=== PATIENT | male | born 1995 | race Caucasian/White ===

== ENCOUNTER 2020-08-02 01:45 | Inpatient (IN) | payer BC, SELFPAY ==
[~2020-08-02] VITALS: Ht 172.7 cm; Wt 88.5 kg
[2020-08-02 01:48] VITALS: BP 150/86
--- NOTE | 2020-08-02 02:01 | NUR ---
24 Y/O MALE C/O ABD PAIN TO RLQ X 1 DAY. PT STATES 7/10 SHARP PAIN, UPON MOVEMENT. ABD SOFT NON TENDER, HYPERACTIVE BOWEL SOUNDS. C/O N/V, CONSTIPATION, LAST BM 5 HRS AGO, SOFT STOOL. MEDHX: DENIES NDKA
--- NOTE | 2020-08-02 02:09 | NUR ---
ERMD AT BEDSIDE EVALUATING PT
[2020-08-02] MEDS ORDERED: KETOROLAC 15 MG/ML VIAL IVP ONE (02:15)
[2020-08-02] MEDS ORDERED: ONDANSETRON 4 MG/2 ML VIAL IVP ONE (02:15)
[2020-08-02 02:29] LABS: BASOPHILS # (AUTO) 0.2 K/uL (0.00-0.22); BASOPHILS % (AUTO) 0.9 % (0.0-2.0); EOSINOPHILS # (AUTO) 0.3 K/uL (0-0.4); EOSINOPHILS % (AUTO) 1.5 % (0.0-4.0); HEMATOCRIT 48.7 % (36-52); HEMOGLOBIN 16.7 g/dL (12.0-18.0); LYMPHOCYTES % (AUTO) 22.4 % (20.5-51.1); MEAN CORPUSCULAR HEMOGLOBIN 30 pg (27-31); MEAN CORPUSCULAR HGB CONC 34 g/dL (33-37); MEAN CORPUSCULAR VOLUME 87.7 fL (80-94); MONOCYTES # (AUTO) 1.2 K/uL (0.8-1.0); MONOCYTES % (AUTO) 6.5 % (1.7-9.3); NEUTROPHILS # (AUTO) 12.2 K/uL (1.8-7.7); NEUTROPHILS % (AUTO) 68.7 % (42.2-75.2); PLATELET COUNT (AUTO) 213 K/uL (140-450); RED BLOOD CELL COUNT(AUTO) 5.56 MIL/uL (4.20-6.10); RED CELL DISTRIBUTION WIDTH 13.2 % (11.6-13.7); WHITE BLOOD COUNT (AUTO) 17.8 K/uL (4.8-10.8)
--- NOTE | 2020-08-02 02:30 | NUR ---
PT TAKEN TO CT VIA W/C
--- NOTE | 2020-08-02 02:36 | NUR ---
PT RETURNED FROM CT VIA W/C
--- NOTE | 2020-08-02 02:38 | NUR ---
ERMD AT BEDSIDE PERFORMING ULTRASOUND
[2020-08-02 02:46] LABS: ALBUMIN 4.2 g/dL (3.4-5.0); ANION GAP 11.4 (8-16); CARBON DIOXIDE 26.3 mmol/L (21-32); CREATININE 1.1 mg/dL (0.6-1.3); POTASSIUM 3.7 mmol/L (3.5-5.1); TOTAL BILIRUBIN 0.4 mg/dL (0.0-1.0)
[2020-08-02] MEDS ORDERED: NACL 0.9% 1,000 ML IV ONE (04:00)
[2020-08-02] MEDS ORDERED: metroNIDAZOLE 500 MG/NS PREMIX 100 ML IV ONE ×2 (04:00→04:16)
--- NOTE | 2020-08-02 04:05 | NUR ---
PT VERBALIZED TO GIVE CONSENT TO GIVE MEDICAL INFORMATION TO MOTHER.
[2020-08-02] MEDS ORDERED: NACL 0.9% 1,000 ML IV SCH (04:07)
[2020-08-02] MEDS ORDERED: MORPHINE SULFATE 2 MG/ML SYR IVP PRN (04:10)
[2020-08-02] MEDS ORDERED: cefTRIAXone 1,000 MG VIAL ONE (04:17)
--- NOTE | 2020-08-02 04:49 | NUR ---
[facility] MEDICATION ADMINISTERED
--- NOTE | 2020-08-02 04:50 | NUR ---
DASHA COVID SWAB DONE AND SENT TO LAB
[2020-08-02 05:45] VITALS: BP 127/78
--- NOTE | 2020-08-02 05:45 | NUR ---
RECEIVED PT FROM SOCIAL MEDIA CAMPAIGN MANAGER AT THIS TIME. PT IS AWAKE AND ALERT ORIENTED X 4 ABLE TO COMMUNICATE WANTS AND NEEDS. CURRENTLY DENIES PAIN, LUNG SOUND CLEAR ABD IS FLAT SOFT AND TENDER WITH PALPITATION. SKIN IS INTACT. V/S: 98.3, 65, 18, 127/78, 98% RA. PAIN 0/10. PT WAS ORIENTED TO ROOM AND CALL LIGHT. SAFETY MEASURES IN PLACE. PT VERBALIZED UNDERSTANDING. MRSA NASAL SWAB COLLECTED AND WILL BE ROUTED TO LAB. PT EDUCATED ON NPO STATUS. WILL CONTINUE TO MONITOR.
--- NOTE | 2020-08-02 05:45 | NUR ---
Patient will be admitted to care of DR LOPEZ. Admited to MED/SURG. Will go to room 119 B. Belongings list completed. Report to [facility] CERVANTES.
[2020-08-02] MEDS ORDERED: AMPICILLIN/SULBACTAM 3 GM VIAL ONE (06:57)
[2020-08-02] MEDS: AMPICILLIN/SULBACTAM 3 GM in NACL 0.9% 100 ML IV SCH ×4 (07:00→23:48)
--- NOTE | 2020-08-02 07:30 | NUR ---
REPORT GIVEN TO AM RN FOR CONTINUITY OF CARE. PT IS STABLE RESTING IN BED.
--- NOTE | 2020-08-02 07:35 | NUR ---
RECEIVED BEDSIDE REPORT FROM NIGHTSHIFT NURSE. PT RESTING IN BED. ABLE TO MAKE NEEDS KNOWN. RESPIRATIONS EVEN AND UNLABORED WITH NO SOB OR RESPIRATORY DISTRESS. SKIN WARM AND DRY TO TOUCH. IV SITE IN RAC 20G IS CLEAN, DRY, AND INTACT. SAFETY MEASURES IN PLACE. WILL CONTINUE TO MONITOR
[2020-08-02 08:00] VITALS: BP 120/82
[2020-08-02] MEDS: ENOXAPARIN 40 MG/0.4 ML SYR SUBQ SCH (08:24)
--- NOTE | 2020-08-02 08:42 | NUR ---
ADMINISTERED SCHED MED PRESCRIBED PER MD ORDER. PT TOLERATED WELL. PT COMPLAINED OF SEVERE PAIN. PRN MORPHINE ADMINISTERED PRESCRIBED PER MD ORDER. MEDICATION EDUCATION PERFORMED. PT VERBALIZED UNDERSTANDING. SAFETY MEASURES IN PLACE. WILL CONTINUE TO MONITOR
--- NOTE | 2020-08-02 10:00 | NUR ---
OBTAINED CONSENT FOR LAPAROSCOPIC APPENDECTOMY ORDERED PER MD. WILL CONTINUE TO MONITOR
--- NOTE | 2020-08-02 10:22 | NUR ---
PRE-OP CHECKLIST COMPLETE. SAFETY MEASURES IN PLACE. WILL CONTINUE TO MONITOR
--- NOTE | 2020-08-02 10:50 | NUR ---
SURGERY HERE TO TAKE PATIENT TO LAP APPY. REPORT GIVEN AT BEDSIDE. SAFETY MEASURES IN PLACE. WILL CONTINUE TO MONITOR
[2020-08-02] MEDS ORDERED: ROCURONIUM 50 MG/5 ML VIAL IV ONE (11:02)
[2020-08-02] MEDS ORDERED: GLYCOPYRROLATE 0.2 MG/ML VIAL ONE (11:02)
[2020-08-02] MEDS ORDERED: DESFLURANE 240 ML BTL INH ONE (11:02)
[2020-08-02] MEDS ORDERED: NEOSTIGMINE 1:1000 10 MG/10 ML VIAL ONE (11:02)
[2020-08-02] MEDS ORDERED: PROPOFOL 200 MG/20 ML VIAL IV ONE (11:02)
[2020-08-02] MEDS ORDERED: SUCCINYLCHOLINE CHLORIDE 200 MG/10 ML VIAL IVP ONE (11:02)
[2020-08-02] MEDS: NACL 0.9% 1,000 ML IV SCH ×3 (11:08→21:34)
[2020-08-02] MEDS ORDERED: HYDROmorphone 1 MG/ML AMP IVP PRN (11:10)
[2020-08-02] MEDS ORDERED: MEPERIDINE 25 MG/ML SYR IVP PRN (11:10)
[2020-08-02] MEDS ORDERED: ONDANSETRON 4 MG/2 ML VIAL IVP PRN ×2 (11:10→12:30)
[2020-08-02] MEDS: BUPIVACAINE-MPF 0.25% 30 ML VIAL INJ ONE ×2 (11:26→12:36)
[2020-08-02] MEDS: LIDOCAINE 2% 1000 MG/50 ML VIAL INJ ONE ×2 (11:27→12:37)
[2020-08-02] MEDS: HYDROmorphone PFS 2 MG/ML SYR ONE ×4 (12:20→12:50)
--- NOTE | 2020-08-02 13:15 | NUR ---
PATIENT RETURNED FROM SURGERY. REPORT GIVEN AT BEDSIDE. POST OP VITALS HAVE BEEN STARTED. SAFETY MEASURES IN PLACE. WILL CONTINUE TO MONITOR
--- NOTE | 2020-08-02 13:28 | NUR ---
ADMINISTERED SCHED MED PRESCRIBED PER MD ORDER. PT TOLERATED WELL. MEDICATION EDUCATION PERFORMED. PT VERBALIZED UNDERSTANDING. SAFETY MEASURES IN PLACE. WILL CONTINUE TO MONITOR
--- NOTE | 2020-08-02 14:32 | NUR ---
HOURLY ROUNDING. PT RESTING IN BED. ABLE TO MAKE NEEDS KNOWN. RESPIRATIONS EVEN AND UNLABORED WITH NO SOB OR RESPIRATORY DISTRESS. SKIN WARM AND DRY TO TOUCH. SAFETY MEASURES IN PLACE. WILL CONTINUE TO MONITOR
[2020-08-02] MEDS: MORPHINE SULFATE 4 MG/ML SYR IVP PRN ×2 (15:19→21:20)
--- NOTE | 2020-08-02 15:19 | NUR ---
PT CALLED AND COMPLAINED OF SEVERE PAIN AND NAUSEA. PRN PAIN MEDICATION ADMINISTERED PRESCRIBED PER MD ORDER. PT TOLERATED WELL. MEDICATION EDUCATION PERFORMED. PT VERBALIZED UNDERSTANDING. SAFETY MEASURES IN PLACE. WILL CONTINUE TO MONITOR
[2020-08-02] MEDS: ONDANSETRON 4 MG/2 ML VIAL IVP PRN (15:29)
[2020-08-02 16:00] VITALS: BP 114/72
[2020-08-02] MEDS: ACETAMINOPHEN/CODEINE 300/30MG 1 TAB PO PRN (17:09)
--- NOTE | 2020-08-02 17:09 | NUR ---
PT CALLED AND COMPLAINED OF PAIN. PRN PAIN MEDICATION ADMINISTERED PRESCRIBED PER MD ORDER. PT TOLERATED WELL. MEDICATION EDUCATION PERFORMED. PT VERBALIZED UNDERSTANDING. SAFETY MEASURES IN PLACE. WILL CONTINUE TO MONITOR
--- NOTE | 2020-08-02 18:03 | NUR ---
ADMINISTERED SCHED MED PRESCRIBED PER MD ORDER. PT TOLERATED WELL. MEDICATION EDUCATION PERFORMED. PT VERBALIZED UNDERSTANDING. SAFETY MEASURES IN PLACE. WILL CONTINUE TO MONITOR
--- NOTE | 2020-08-02 20:00 | NUR ---
RECEIVED BEDSIDE REPORT FROM THE DAY RN FOR CONTINUITY OF CARE. RECEIVED PT LAYING IN BED, A/A/OX4. PT S/P LAP APPY WITH 3 LAP SITES COVERED WITH 2X2 ALL C/D/I. PT C/O PAIN ON HIS ABDOMEN. PT MADE AWARE THAT HIS PAIN MEDICATIONS ARE NOT DUE YET. DENIES NAUSEA AND VOMITING. PT VERBALIZED THAT HE DIDN'T PASS GAS AND NO BURPING WELL. INSTRUCTED THE PT TO GET OUT OF BED WHEN HIS PAIN IS CONTROLLED AND WALK AROUND THE ROOM OR IN THE HALLWAY. GAVE PT THE BENEFITS OF MOVING AROUND AND GETTING OUT OF BED. ALSO PROVIDED THE PT INCENTIVE SPIROMETER AND DEMONSTRATE HOW TO USE IT WITH RETURN DEMONSTRATION FROM THE PT. INSTRUCTED THE PT TO USE IT 10X Q HOUR WHEN HE IS AWAKE TO PREVENT POST OP PNEUMONIA. PT VERBALIZED UNDERSTANDING WITH THE TEACHING. IVF INFUSING ORDERED. CALL LIGHT WITHIN REACH. WILL CONTINUE POC AND MONITORING.
--- NOTE | 2020-08-02 22:00 | NUR ---
MEDICATED THE PT EARLIER WITH MORPHINE AND PT IS CURRENTLY ASLEEP AND NO COMPLAIN. NO SIGN AND SYMPTOMS OF DISTRESS NOTED.
[2020-08-03] VITALS: BP 148/84
--- NOTE | 2020-08-03 | NUR ---
PT VITAL SIGNS STABLE, AFEBRILE, SATING 100% ON RA. NO COMPLAIN OF PAIN AT THIS TIME.
[2020-08-03] MEDS: ONDANSETRON 4 MG/2 ML VIAL IVP PRN (00:53)
--- NOTE | 2020-08-03 01:09 | NUR ---
PT CALLED AND COMPLAINING THAT HE FEELS HOT AND BREAKING A SWEAT. PT IS AFEBRILE, TEMPERATURE IS 98.2. COLD COMPRESS PROVIDED. PT ALSO C/O NAUSEA, PRN ZOFRAN GIVEN ORDERED. WILL CONTINUE TO MONITOR PT.
--- NOTE | 2020-08-03 02:00 | NUR ---
PT ASLEEP AT THIS TIME. VISIBLE CHEST RISE AND FALL NOTED. NOT IN ANY DISTRESS. BED IN LOW POSITION. SIDE RAILS UP. CALL LIGHT WITHIN REACH.
--- NOTE | 2020-08-03 04:36 | NUR ---
MADE ROUNDS, PT STILL ASLEEP AND AROUSABLE. NOT IN ANY DISTRESS. NO COMPLAIN AT THIS TIME. CALL LIGHT WITHIN REACH.
--- NOTE | 2020-08-03 05:55 | NUR ---
PT CALLED BECAUSE HIS IV PUMP IS BEEPING. ASKED THE PT HOW MANY TIMES HE URINATED SINCE LAST NIGHT BEFORE AFTER 7PM. PER PT HE VOIDED 3 TIMES AND STATED THAT EVERY TIME HE URINATE HE HAS BURNING SENSATION BUT NO PAIN. PT ALSO STATED HE DOESN'T URINATE MUCH. INSTRUCTED THE PT TO USE URINAL THIS TIME SO WE CAN SEE HOW MUCH HE IS VOIDING. PT VERBALIZED UNDERSTANDING. Addendum: 08/03/20 at 0611 by Day [place] RN RN PT STATED EARLIERR TOO THAT HIS BEEN HAVING THIS PROBLEM FOR AWHILE NOW. I ASKED THE PT IF HE SEE A UROLOGIST OR IF HE MENTION IT TO HIS PMD, PER PT " I DON'T REMEMBER" .
--- NOTE | 2020-08-03 06:05 | NUR ---
WENT TO THE PT ROOM AND FOUND PT UP IN BED AND JUST WENT TO THE BATHROOM. PT VOIDED 100 CC , DARK ASTER URINE. DID BLADDER SCAN AND SHOWED PT HAS ONLY < 150 CC IN THE BLADDER. WILL ENDORSE IT TO THE ONCOMING RN TO NOTIFY MD WHEN THEY MAKE THEIR ROUNDS. ADVICE PT TO MENTION IT TO MD WHEN THEY MAKE THEIR ROUNDS.
[2020-08-03] MEDS: AMPICILLIN/SULBACTAM 3 GM in NACL 0.9% 100 ML IV SCH ×4 (06:17→23:08)
[2020-08-03] MEDS: MORPHINE SULFATE 4 MG/ML SYR IVP PRN ×2 (06:22→18:57)
--- NOTE | 2020-08-03 06:50 | NUR ---
PT STABLE NO ACUTE EVENTS THROUGHOUT THE NIGHT. NO COMPLAIN AT THIS TIME. NOT IN ANY DISTRESS. MEDICATED EARLIER FOR PAIN.ALL NEEDS ATTENDED. CALL LIGHT WITHIN REACH. WILL ENDORSE THE PT TO THE ONCOMING RN FOR CONTINUITY OF CARE.
[2020-08-03 07:33] LABS: BASOPHILS % (AUTO) 0.1 % (0.0-2.0); HEMATOCRIT 34.7 % (36-52); HEMOGLOBIN 11.9 g/dL (12.0-18.0); LYMPHOCYTES # (AUTO) 0.9 K/uL (2.0-11.5); LYMPHOCYTES % (AUTO) 9.9 % (20.5-51.1); MEAN CORPUSCULAR HEMOGLOBIN 31 pg (27-31); MEAN CORPUSCULAR HGB CONC 34 g/dL (33-37); MEAN CORPUSCULAR VOLUME 88.6 fL (80-94); MONOCYTES # (AUTO) 1.3 K/uL (0.8-1.0); MONOCYTES % (AUTO) 13.9 % (1.7-9.3); NEUTROPHILS # (AUTO) 7.3 K/uL (1.8-7.7); NEUTROPHILS % (AUTO) 76.1 % (42.2-75.2); PLATELET COUNT (AUTO) 205 K/uL (140-450); RED BLOOD CELL COUNT(AUTO) 3.92 MIL/uL (4.20-6.10); RED CELL DISTRIBUTION WIDTH 13.4 % (11.6-13.7); WHITE BLOOD COUNT (AUTO) 9.6 K/uL (4.8-10.8)
[2020-08-03 07:34] LABS: ALBUMIN 3.5 g/dL (3.4-5.0); ANION GAP 11.6 (8-16); CARBON DIOXIDE 28.9 mmol/L (21-32); CREATININE 1.1 mg/dL (0.6-1.3); MAGNESIUM 1.7 mg/dL (1.8-2.4); POTASSIUM 4.5 mmol/L (3.5-5.1); TOTAL BILIRUBIN 0.6 mg/dL (0.0-1.0)
--- NOTE | 2020-08-03 07:36 | NUR ---
PT STABLE. ENDORSED THE PT TO THE ONCOMING RN FOR CONTINUITY OF CARE. SIGNING OFF.
--- NOTE | 2020-08-03 07:39 | NUR ---
RECEIVED REPORT FROM NIGHT NURSE PT IS AAOX4 AND SITTING IN BED, ON ROOM AIR, AMBULATORY, IV SITES INTACT AND PATENT ON RIGHT AC. SAFETY MEASURES IN PLACE AND CALL LIGHT WITHIN REACH. WILL CONTINUE TO MONITOR.
[2020-08-03 08:00] VITALS: BP 145/87
--- NOTE | 2020-08-03 08:25 | NUR ---
MEDICATIONS DUE GIVEN AT THIS TIME. PATIENT IS AWAKE AND COMPLAINS OF ABDOMINAL PAIN 5/10 AND VERBALIZES PAIN IS TOLERABLE. ENCOURAGE TO DO INCENTIVE SPIROMETER WHEN AWAKE AND TO AMBULATE. SAFETY MEASURES IN PLACE AND CALL LIGHT WITHIN REACH.WILL CONTINUE TO MONITOR.
[2020-08-03] MEDS: ENOXAPARIN 40 MG/0.4 ML SYR SUBQ SCH (08:28)
[2020-08-03] MEDS: ACETAMINOPHEN/CODEINE 300/30MG 1 TAB PO PRN ×2 (11:07→20:35)
--- NOTE | 2020-08-03 11:07 | NUR ---
PATIENT COMPLAINS OF PAIN IN THE RIGHT LOWER ABDOMINAL AREA UPON SITTING 6/10 PAIN MEDICATIONS GIVEN. SAFETY MEASURES IN PLACE AND CAll light within reach.WILL CONTINUE TO MONITOR.
--- NOTE | 2020-08-03 11:29 | NUR ---
PATIENT HAS BEEN SCREENED AND CATEGORIZED MODERATE NUTRITION RISK. PATIENT WILL BE SEEN WITHIN 3-5 DAYS OF ADMISSION. 08/05/20 - 08/07/20 JOHANN PACHECO MBA, RD
[2020-08-03] MEDS: NACL 0.9% 1,000 ML IV SCH ×2 (11:37→20:24)
--- NOTE | 2020-08-03 13:05 | NUR ---
REASSESSED PATIENT'S PAIN AT THIS TIME PAIN SCALE OF 7/10 T0 5/10 AT PT SAID ITS TOLERABLE.
--- NOTE | 2020-08-03 14:30 | NUR ---
DR OCONNELL CHECKED AND TALKED TO THE PATIENT AT THIS TIME, INCREASED HYDRATION FROM 120 MLS/HR TO 150 MLS/HR. AND TO CONTINUE PAIN MEDICATIONS.
[2020-08-03 16:00] VITALS: BP 141/83
--- NOTE | 2020-08-03 17:00 | NUR ---
MADE ROUNDS AT THIS TIME PATIENT IS AMBULATING AND COMPLAINS OF PAIN AND NOT ABLE TO PASS GAS. ENCOURAGE PATIENT TO AMBULATE AND DO INCENTIVE SPIROMETRY.
--- NOTE | 2020-08-03 18:00 | NUR ---
MEDICATIONS DUE GIVEN, PT IS STABLE AND IN PAIN BUT SAID ITS TOLERABLE. SAFETY MEASURES IN PLACE AND CALL LIGHT WITHIN REACH. WILL CONTINUE TO MONITOR.
--- NOTE | 2020-08-03 19:15 | NUR ---
ENDORSED TO NIGHT NURSE FOR CONTINUITY OF CARE. PT IS STABLE
--- NOTE | 2020-08-03 19:15 | NUR ---
RECEIVED PT AAOX4 , NID - O2 SAT WNL . IV SITE INTACT AND PATENT . W/ 3 SURGICAL INCISSION ON BED - DRESSING DRY AND INTACT - NO ACTIVE BLEEDING NOTED AT THIS TIME IN THE SURGICAL SITES . C/O SORE THROAT DRYNESS AND IRRITATION - EXPLAIN TO HIM SOME ANESTHETIC AGENTS HAS SIDE EFFECTS SUCH THROAT DRYNESS . PT C/O PAIN - WILL MEDICATE . SAFETY MEASURES IN PLACE . POC DISCUSSED AND VERBALIZE UNDERSTANDING . WILL CONT. TO MONITOR. Addendum: 08/04/20 at 0747 by Tammy Bronson RN THERE IS SMALL HEMATOMA ON THE MIDDLE INCISSION THE SIZE IS JUST LIKE HALF SIZE OF TEASPOON - BUT NO BLEEDING OOZING ON THAT SITE - WILL MONITOR
--- NOTE | 2020-08-03 22:52 | NUR ---
MADE ROUNDS , NO S/SX OF ACUTE DISTRESS NOTED AT THNIS TIME . WILL CONT. TO MONITOR.
[2020-08-04] VITALS: BP 140/90
--- NOTE | 2020-08-04 | NUR ---
MADE ROUNDS , BEARABLE PAIN AT THIS TIME HE SAID . WILL CONT. TO MONITOR.
--- NOTE | 2020-08-04 04:00 | NUR ---
MADE ROUNDS , NO S/SX OF ACUTE DISTRESS NOTED AT THIS TIME .
[2020-08-04] MEDS: NACL 0.9% 1,000 ML IV SCH ×2 (04:46→12:53)
[2020-08-04] MEDS: AMPICILLIN/SULBACTAM 3 GM in NACL 0.9% 100 ML IV SCH ×2 (05:03→12:33)
--- NOTE | 2020-08-04 06:00 | NUR ---
THERE IS NO PROGRESS IN SIZE OF HEMATOMA IN INCISSION SITE IN THE MIDDLE - STILL THE SIZE OF HEMATOMA IS JUST LIKE HALF OF TEASPOON - WILL CONT. TO MONITOR - WILL ENDORSE .
--- NOTE | 2020-08-04 07:24 | NUR ---
RECEIVED REPORT FROM CLINICAL RESEARCH TECH NURSE HAL[place] FOR CONTINUITY OF CARE. PATIENT IN STABLE CONDITION. RESPIRATIONS EVEN AND UNLABORED, ROOM AIR. IV INTACT AND PATENT. SAFETY MEASURES IN PLACE. BED IN LOW POSITION. CALL LIGHT WITHIN REACH. WILL CONTINUE TO MONITOR.
--- NOTE | 2020-08-04 07:24 | NUR ---
ENDORSED TO AM SHIFT - PT - STABLE .
[2020-08-04 08:00] VITALS: BP 147/77
[2020-08-04] MEDS: ENOXAPARIN 40 MG/0.4 ML SYR SUBQ SCH (09:44)
--- NOTE | 2020-08-04 09:44 | NUR ---
GAVE ORDERED DUE MEDICATIONS AT THIS TIME. PATIENT TOLERATED WELL. BED IN LOW POSITION. CALL LIGHT WITHIN REACH. WILL CONTINUE TO MONITOR.
--- NOTE | 2020-08-04 09:56 | NUR ---
TEARER NOTE: Patient's Orientation Person Situation Place Time Information Provided By PATIENT Comments SW WAS UNABLE TO MEET PATIENT AT BEDSIDE DUE TO MEDICAL CONDITION. SW COMPLETED ASSESSMENT WITH PATIENT TELEPHONICALLY. Social Insurance Specialist, Realtionship and Phone Number ROXANNE MERCEDES [phone] Healthcare Power of Blue Line Operator No Does Patient Have a POLST No Identifying Problems No Social Work Triggers Is A Social Work Consult Needed No Mandate Report Filed No Explanation Of Identifying Problems PATIENT IS A 24-YEAR-OLD MALE ADMITTED FOR APPENDICITIS. PATIENT HAS NO PERTINENT PMHX. PATIENT REPORTS NO HISTORY OF SUBSTANCE ABUSE OR MENTAL HEALTH. Admitted From Home Pre-Admission Level Of Functioning Status Independent/Ambulatory Prior Resources/Services Used In Last 12 Months No Prior Resources Used Prior DME No Prior DME Used Dialysis Comments PATIENT REPORTS NOT RECEIVING DIALYSIS. Living Situation Lives With Family House Patient Had Caregiver No Home Support No Caregiver Issues Financial Issues No Known Financial Issue Factors/Needs No D/C Needs Identified Pt/Rep Participated In Discharge Plan Yes Patient/Family Agress With Discharge Plan Yes Discharge Plan Comments TENTATIVE DISCHARGE PLAN IS FOR PATIENT TO RETURN HOME. DC Plan Status Initiated
--- NOTE | 2020-08-04 10:07 | NUR ---
DC PLANNIN YRS OLD MALE PATIENT WAS ADMITTED FROM HOME WITH A DX OF APPENDICITIS. PT HAS A HX OF OBESITY . CT ABD SHOWED APPENDICITIS. STARTED IVF, PAIN MEDS AND CONSULTED WITH SURGEON DR URBAN. LAP APPY WAS PERFORMED BY DR URBAN. AMBULATING WELL, ADVANCED DIET TOLERATING WELL PAIN CONTROLLED POSSIBLE DISCHARGE TODAY. CM TO FOLLOW Addendum: 08/04/20 at 1148 by Elenita Rodriguez CM DC PLANNING: RECEIVED A CALL FROM CRISTINA SCHAEFFER AT [facility] PROVIDED AUTHORIZATION FOR STAY. # [phone].
--- NOTE | 2020-08-04 11:35 | NUR ---
TORB MARCOS ORNELAS ADVANCE DIET FROM CLEAR TO REG. PATIENT IS CLEAR FOR DISCHARGE FROM SX STANDPOINT. NEEDS TO FOLLOW UP WITH MARCOS ORNELAS IN 7 DAYS.
--- NOTE | 2020-08-04 15:10 | NUR ---
GAVE DISCHARGE INSTRUCTIONS AND USE OVER THE COUNTER TYLENOL FOR PAIN, PATIENT VERBALIZED UNDERSTANDING OF INSTRUCTIONS. IV REMOVED, LUMEN INTACT. ID REMOVED. PATIENT REFUSED WHEELCHAIR. PATIENT WAS ESCORTED TO LOBBY IN STABLE CONDITION WHERE FAMILY WAS WAITING WITH VEHICLE.
== END 2020-08-04 15:34 | disposition home or self-care (01) | DRG 343 ==
LOC: MED 01:45 → MMU 04:07 → MTU 05:33
PROVIDERS: ADMIT Hospitalist; ATTEND Hospitalist
PROC: 0DTJ4ZZ Resection of Appendix, Percutaneous Endoscopic Approach (ICD-10-PCS; principal; 2020-08-02 11:00)
DX: K35.80 Unspecified acute appendicitis (principal); E66.9 Obesity, unspecified; K66.0 Peritoneal adhesions (postprocedural) (postinfection); Z20.828 Contact with and (suspected) exposure to other viral communicable diseases; Z68.29 Body mass index [BMI] 29.0-29.9, adult
CPT/HCPCS: 36415; 80053; 83690; 83735; 85025; 86886; 86900; 86901; 87040; 87070; 87075; 87081; 87205; 96365; 96375; 99285; J0295; J0330; J0696; J1170; J1650; J1885; J2001; J2270; J2405; J2704; J2710; J3490; J7030

== ENCOUNTER 2024-08-29 09:15 | Day surgery (SDC) | payer OTHER ==
[~2024-08-29] VITALS: Ht 172.7 cm; Wt 93.9 kg
[2024-08-29] MEDS ORDERED: fentaNYL citrate 0.05 MG/ML VIAL ONE (12:28)
[2024-08-29] MEDS ORDERED: LIDOCAINE 2% 100 MG/5 ML UJET TP ONE (12:28)
[2024-08-29] MEDS: fentaNYL citrate 0.05 MG/ML VIAL IVP ONE (13:04)
== END 2024-08-29 14:04 | disposition home or self-care (01) ==
LOC: MDS 09:15 → MMU 11:37 → MDS 14:04
PROVIDERS: ATTEND Internal Medicine Gastroenterology
DX: K62.5 Hemorrhage of anus and rectum (principal); K64.4 Residual hemorrhoidal skin tags; I10 Essential (primary) hypertension; E78.00 Pure hypercholesterolemia, unspecified; F17.210 Nicotine dependence, cigarettes, uncomplicated; Z90.49 Acquired absence of other specified parts of digestive tract; Z79.899 Other long term (current) drug therapy
CPT/HCPCS: 45378; J3010